=== PATIENT | male | born 1945 | race Caucasian/White ===

== ENCOUNTER 2022-04-01 07:21 | Outpatient (CLI) | payer BC, SELFPAY ==
[2022-04-01 13:10] LABS: PSA Screen* 3.93 ng/mL (0.10-4.00)
== END 2022-04-01 07:22 | disposition home or self-care (01) ==
LOC: FRMREF 07:22
PROVIDERS: PCP Physician Assistant Medical; Visit Provider Physician Assistant Medical
DX: Z00.00 Encounter for general adult medical examination without abnormal findings (principal); R97.20 Elevated prostate specific antigen [PSA]; Z12.5 Encounter for screening for malignant neoplasm of prostate
CPT/HCPCS: 84153

== ENCOUNTER 2022-10-21 13:51 | Outpatient (CLI) | payer BC, SELFPAY | END 2022-10-21 13:52 | disposition home or self-care (01) | LOC: NFLDREF 10-23 14:20 | PROVIDERS: PCP Physician Assistant Medical; Referring Provider Physician Assistant Medical; Visit Provider Physician Assistant Medical | DX: E11.9 Type 2 diabetes mellitus without complications (principal); E78.5 Hyperlipidemia, unspecified; I10 Essential (primary) hypertension; E78.2 Mixed hyperlipidemia; N18.30 Chronic kidney disease, stage 3 unspecified; I48.92 Unspecified atrial flutter | CPT/HCPCS: 80053; 80061 ==

== ENCOUNTER 2023-06-11 12:23 | Outpatient (CLI) | payer BC, SELFPAY | END 2023-06-11 12:24 | disposition home or self-care (01) | LOC: FRMREF 12:24 | PROVIDERS: PCP Physician Assistant Medical; Visit Provider Physician Assistant Medical | DX: E11.9 Type 2 diabetes mellitus without complications (principal); N18.30 Chronic kidney disease, stage 3 unspecified; R97.20 Elevated prostate specific antigen [PSA]; E78.5 Hyperlipidemia, unspecified; I42.9 Cardiomyopathy, unspecified; R00.1 Bradycardia, unspecified | CPT/HCPCS: 84153; 84443 ==

== ENCOUNTER 2023-07-19 12:22 | Outpatient (CLI) | payer BC, SELFPAY | END 2023-07-19 12:23 | disposition home or self-care (01) | LOC: RAD 12:24 | PROVIDERS: PCP Physician Assistant Medical; Visit Provider Physician Assistant Medical | DX: I42.9 Cardiomyopathy, unspecified (principal); I35.1 Nonrheumatic aortic (valve) insufficiency; I34.0 Nonrheumatic mitral (valve) insufficiency; I10 Essential (primary) hypertension | CPT/HCPCS: 93306 ==

== ENCOUNTER 2023-12-07 09:34 | Outpatient (CLI) | payer BC, SELFPAY | END 2023-12-07 09:35 | disposition home or self-care (01) | LOC: NFLDREF 12-11 15:14 | PROVIDERS: PCP Physician Assistant Medical; Referring Provider Physician Assistant Medical; Visit Provider Physician Assistant Medical | DX: E11.9 Type 2 diabetes mellitus without complications (principal); E78.2 Mixed hyperlipidemia; I10 Essential (primary) hypertension; N18.30 Chronic kidney disease, stage 3 unspecified; R97.20 Elevated prostate specific antigen [PSA]; E78.5 Hyperlipidemia, unspecified; I48.92 Unspecified atrial flutter; N18.32 Chronic kidney disease, stage 3b; I50.21 Acute systolic (congestive) heart failure; I42.9 Cardiomyopathy, unspecified | CPT/HCPCS: 80061; 82043; 82570; 84443; G0103 ==

== ENCOUNTER 2023-12-08 08:47 | Outpatient (CLI) | payer BC, SELFPAY | END 2023-12-08 08:48 | disposition home or self-care (01) | LOC: NFLDREF 12-12 15:17 | PROVIDERS: PCP Physician Assistant Medical; Referring Provider Physician Assistant Medical; Visit Provider Physician Assistant Medical | DX: E11.9 Type 2 diabetes mellitus without complications (principal); E78.2 Mixed hyperlipidemia; I10 Essential (primary) hypertension; N18.30 Chronic kidney disease, stage 3 unspecified; R97.20 Elevated prostate specific antigen [PSA]; E78.5 Hyperlipidemia, unspecified; I48.92 Unspecified atrial flutter; N18.32 Chronic kidney disease, stage 3b; I50.21 Acute systolic (congestive) heart failure; I42.9 Cardiomyopathy, unspecified | CPT/HCPCS: 82043; 82570 ==

== ENCOUNTER 2024-11-09 10:21 | Outpatient (CLI) | payer BC, SELFPAY | END 2024-11-09 10:22 | disposition home or self-care (01) | LOC: NFLDREF 11-16 23:54 | PROVIDERS: PCP Physician Assistant Medical; Referring Provider Physician Assistant Medical; Visit Provider Physician Assistant Medical | DX: E11.22 Type 2 diabetes mellitus with diabetic chronic kidney disease (principal); I12.9 Hypertensive chronic kidney disease with stage 1 through stage 4 chronic kidney disease, or unspecified chronic kidney disease; N18.32 Chronic kidney disease, stage 3b; E78.2 Mixed hyperlipidemia; R97.20 Elevated prostate specific antigen [PSA]; R25.1 Tremor, unspecified; Z12.5 Encounter for screening for malignant neoplasm of prostate | CPT/HCPCS: 80053; 80061; 82043; 82570; 84443; G0103 ==

== ENCOUNTER 2025-04-08 11:10 | Outpatient (CLI) | payer BC, SELFPAY | END 2025-04-08 11:11 | disposition home or self-care (01) | LOC: NFLDREF 17:35 | PROVIDERS: PCP Physician Assistant Medical; Referring Provider Physician Assistant Medical; Visit Provider Nurse Practitioner Family | DX: N30.01 Acute cystitis with hematuria (principal) | CPT/HCPCS: 87086 ==

== ENCOUNTER 2025-04-18 15:56 | Outpatient (CLI) | payer BC, SELFPAY | END 2025-04-18 15:57 | disposition home or self-care (01) | LOC: NFLDREF 04-21 17:13 | PROVIDERS: PCP Physician Assistant Medical; Referring Provider Physician Assistant Medical; Visit Provider Physician Assistant Medical | DX: N30.00 Acute cystitis without hematuria (principal) | CPT/HCPCS: 87086 ==

== ENCOUNTER 2025-06-02 12:00 | Outpatient (CLI) | payer BC, SELFPAY | END 2025-06-02 12:01 | disposition home or self-care (01) | LOC: NFLDREF 06-07 15:52 | PROVIDERS: PCP Physician Assistant Medical; Referring Provider Physician Assistant Medical; Visit Provider Nurse Practitioner Family | DX: R06.02 Shortness of breath (principal) | CPT/HCPCS: 83880 ==